=== PATIENT | male | born 1985 | race African-American/Black ===

== ENCOUNTER 2016-10-17 04:02 | Emergency (ER) | payer MEDICAID ==
[~2016-10-17] VITALS: Ht 188 cm; Wt 141.0 kg
[2016-10-17 04:45] VITALS: BP 162/100
[2016-10-17] MEDS ORDERED: LIDOCAINE HCL 1% 20ML VIAL (Pyxis) INJ MC ONE (05:30)
[2016-10-17] MEDS ORDERED: HYDROCODONE/ACETAMINOPHEN 5/325MG TABLET PO ONE (05:30)
[2016-10-17] MEDS ORDERED: BACITRACIN ZINC OINT UDPKT TOP ONE (05:30)
[2016-10-17] MEDS ORDERED: TETANUS, DIPHTHERIA, PERTUSSIS VAC/PF 0.5ML (>7YR OLD) IM ONE (05:30)
== END 2016-10-17 06:05 | disposition home or self-care (01) ==
LOC: ER 04:02
DX: S01.01XA Laceration without foreign body of scalp, initial encounter (principal); F17.200 Nicotine dependence, unspecified, uncomplicated; I10 Essential (primary) hypertension; X58.XXXA Exposure to other specified factors, initial encounter; Y93.89 Activity, other specified; Y92.89 Other specified places as the place of occurrence of the external cause; Y99.8 Other external cause status; Z98.890 Other specified postprocedural states
CPT/HCPCS: 12001; 99283; J3490; X7700; Z7610

== ENCOUNTER 2016-10-24 13:57 | Emergency (ER) | payer MEDICAID ==
[~2016-10-24] VITALS: Ht 185.4 cm; Wt 141.0 kg
[2016-10-24 14:45] VITALS: BP 160/108
== END 2016-10-24 15:45 | disposition home or self-care (01) ==
LOC: ER 14:25
DX: S01.01XD Laceration without foreign body of scalp, subsequent encounter (principal); I10 Essential (primary) hypertension; F31.9 Bipolar disorder, unspecified; F17.210 Nicotine dependence, cigarettes, uncomplicated; W22.8XXD Striking against or struck by other objects, subsequent encounter; Y93.89 Activity, other specified; Y92.9 Unspecified place or not applicable; Y99.8 Other external cause status
CPT/HCPCS: 99281

== ENCOUNTER 2020-08-07 14:44 | Emergency (ER) | payer MEDICAID ==
[~2020-08-07] VITALS: Ht 185.4 cm; Wt 104.0 kg
[2020-08-07 15:49] LABS: CHLORIDE 104 mEq/L (98-107)
[2020-08-07 15:54] LABS: ETHANOL BLOOD 38 mg/dL
[2020-08-07] MEDS ORDERED: LEVETIRACETAM 1000MG PREMIX 100 ML IV ONE (16:00)
[2020-08-07 16:27] LABS: BASOPHILS % 0.9 % (0.0-2.0); EOSINOPHILS % 0.5 % (0.0-5.0); HEMATOCRIT. 46.3 % (42.0-52.0); HEMOGLOBIN. 15.7 g/dL (14.0-18.0); LYMPHOCYTES % 18.8 % (20.0-50.0); MEAN CORPUSCULAR HEMOGLOBIN 32.5 pg (28.0-32.0); MEAN CORPUSCULAR VOLUME 95.8 fL (80.0-94.0); MEAN PLATELET VOLUME 8.2 fl (7.4-10.4); MONOCYTES % 8.4 % (2.0-8.0); NEUTROPHILS % 71.4 % (40.0-76.0); PLATELET 199 x1000/uL (130-400); RED BLOOD CELL COUNT 4.83 mill/uL (4.7-6.1); RED CELL DISTRIBUTION WIDTH 13.7 % (11.6-14.6)
[2020-08-07 16:40] LABS: CLARITY URINE CLEAR (CLEAR); COLOR URINE YELLOW (YELLOW); KETONES URINE TRACE (NEGATIVE); LEUKOCYTE ESTERASE URINE NEGATIVE (NEGATIVE); NITRITE URINE NEGATIVE (NEGATIVE); OCCULT BLOOD URINE TRACE (NEGATIVE); PROTEIN URINE 2+ (NEGATIVE); SPECIFIC GRAVITY URINE 1.019 (1.005-1.030)
[2020-08-07 17:04] LABS: *BARBITURATES SCREEN URINE NEGATIVE (NEGATIVE)
[2020-08-07 17:05] LABS: *AMPHETAMINES SCREEN URINE PRESUMTIVE POSITIVE (NEGATIVE); *BENZODIAZEPINES SCREEN URINE NEGATIVE (NEGATIVE); *COCAINE SCREEN URINE NEGATIVE (NEGATIVE); CANNABINOID URINE SCREEN PRESUMTIVE POSITIVE (NEGATIVE); METHADONE URINE SCREEN NEGATIVE (NEGATIVE); OPIATES URINE SCREEN NEGATIVE (NEGATIVE); PHENCYCLIDINE URINE SCREEN NEGATIVE (NEGATIVE)
[2020-08-07] MEDS ORDERED: LEVE500T19 MT (18:11)
[2020-08-07 23:34] VITALS: BP 177/103
== END 2020-08-08 01:20 | disposition home or self-care (01) ==
LOC: ER 14:44
DX: R56.9 Unspecified convulsions (principal); F31.9 Bipolar disorder, unspecified; I10 Essential (primary) hypertension; F17.290 Nicotine dependence, other tobacco product, uncomplicated; M79.672 Pain in left foot
CPT/HCPCS: 36415; 73630; 80053; 80305; 80320; 81003; 82962; 85025; 93005; 96365; 99285; 99406; J1953; Z7610; G0480

== ENCOUNTER 2023-07-16 01:16 | Emergency (ER) | payer MEDICAID ==
[~2023-07-16] VITALS: Ht 185.4 cm; Wt 140.1 kg
[~2023-07-16 01:16] MED LIST: LEVE500T19 MT
[2023-07-16 01:33] VITALS: TEMP 98.8; O2SAT 94
[2023-07-16 01:53] LABS: EOSINOPHILS % 1.4 % (0.0-5.0); HEMATOCRIT. 46.1 % (42.0-52.0); HEMOGLOBIN. 15.5 g/dL (14.0-18.0); LYMPHOCYTES % 47.2 % (20.0-50.0); MEAN CORPUSCULAR HEMOGLOBIN 32.6 pg (28.0-32.0); MEAN CORPUSCULAR HGB CONC 33.7 g/dL (31.0-37.0); MEAN CORPUSCULAR VOLUME 96.9 fL (80.0-94.0); MEAN PLATELET VOLUME 8.1 fl (7.4-10.4); MONOCYTES % 7.7 % (2.0-8.0); NEUTROPHILS % 42.7 % (40.0-76.0); PLATELET 239 x1000/uL (130-400); RED BLOOD CELL COUNT 4.75 mill/uL (4.7-6.1); RED CELL DISTRIBUTION WIDTH 14.5 % (11.6-14.6); WHITE BLOOD COUNT 4.8 x1000/uL (4.5-11.0)
[2023-07-16 01:53] LABS: CLARITY URINE CLEAR (CLEAR); COLOR URINE DARK YELLOW (YELLOW); GLUCOSE URINE NEGATIVE (NEGATIVE); KETONES URINE NEGATIVE (NEGATIVE); LEUKOCYTE ESTERASE URINE NEGATIVE (NEGATIVE); NITRITE URINE NEGATIVE (NEGATIVE); OCCULT BLOOD URINE NEGATIVE (NEGATIVE); PROTEIN URINE 1+ (NEGATIVE); SPECIFIC GRAVITY URINE 1.022 (1.005-1.030)
[2023-07-16 02:07] LABS: BACTERIA URINE NONE SEEN; RBC URINE NONE SEEN /hpf (0-2); SQUAMOUS EPITHELIAL CELL URINE NONE SEEN /lpf (RARE/1+); WBC URINE NONE SEEN /hpf (0-2)
[2023-07-16 02:09] LABS: ALANINE AMINOTRANSFERASE 55 IU/L (10-49); ALBUMIN 4.5 g/dL (3.2-4.8); ASPARTATE AMINOTRANSFERASE 126 IU/L (<34); BILIRUBIN TOTAL 0.3 mg/dL (0.1-1.0); CALCIUM 9.3 mg/dL (8.7-10.4); CARBON DIOXIDE 25 mEq/L (21-32); CHLORIDE 105 mEq/L (98-107); CREATININE 0.8 mg/dL (0.6-1.3); GLUCOSE 122 mg/dL (70-105); POTASSIUM 3.6 mEq/L (3.5-5.1); PROTEIN TOTAL 8.7 g/dL (6.0-8.3); SODIUM 136 mEq/L (136-145); UREA NITROGEN BLOOD 5 mg/dL (9-23)
[2023-07-16] MEDS ORDERED: DOCU-138 MT (05:30)
[2023-07-16] MEDS ORDERED: IBUP-2029 MT (05:30)
[2023-07-16 07:01] VITALS: BP 183/129; PULSE 103; RESP 20
== END 2023-07-16 07:02 | disposition home or self-care (01) ==
LOC: ER 01:16
DX: R10.32 Left lower quadrant pain (principal); F17.200 Nicotine dependence, unspecified, uncomplicated; E78.00 Pure hypercholesterolemia, unspecified; I10 Essential (primary) hypertension
CPT/HCPCS: 80053; 81003; 83690; 85025; 36415; 74176; 93005; 99285; Z7610 ×2

== ENCOUNTER 2023-09-15 21:07 | Emergency (ER) | payer MEDICAID ==
[~2023-09-15] VITALS: Ht 185.4 cm; Wt 118.0 kg
[~2023-09-15 21:07] MED LIST changes: +DOCU-138 MT; +IBUP-2029 MT
[2023-09-15 21:09] VITALS: TEMP 98.4; O2SAT 100
[2023-09-15] MEDS: LEVETIRACETAM 1000MG PREMIX 100 ML IV ONE (21:42)
[2023-09-15 21:47] LABS: BASOPHILS % 0.5 % (0.0-2.0); EOSINOPHILS % 3.4 % (0.0-5.0); HEMOGLOBIN. 15.4 g/dL (14.0-18.0); LYMPHOCYTES % 28.3 % (20.0-50.0); MEAN CORPUSCULAR HEMOGLOBIN 32.8 pg (28.0-32.0); MEAN CORPUSCULAR HGB CONC 33.5 g/dL (31.0-37.0); MEAN CORPUSCULAR VOLUME 97.9 fL (80.0-94.0); MEAN PLATELET VOLUME 8.8 fl (7.4-10.4); MONOCYTES % 8.2 % (2.0-8.0); NEUTROPHILS % 59.6 % (40.0-76.0); PLATELET 217 x1000/uL (130-400); RED CELL DISTRIBUTION WIDTH 14.3 % (11.6-14.6)
[2023-09-15 22:11] LABS: ALANINE AMINOTRANSFERASE 55 IU/L (10-49); ALBUMIN 4.2 g/dL (3.2-4.8); ASPARTATE AMINOTRANSFERASE 148 IU/L (<34); BILIRUBIN TOTAL 0.8 mg/dL (0.1-1.0); CALCIUM 9.4 mg/dL (8.7-10.4); CARBON DIOXIDE 20 mEq/L (21-32); CHLORIDE 96 mEq/L (98-107); GLUCOSE 134 mg/dL (70-105); POTASSIUM 3.5 mEq/L (3.5-5.1); PROTEIN TOTAL 7.8 g/dL (6.0-8.3); SODIUM 130 mEq/L (136-145)
[2023-09-15] MEDS: MORPHINE SULFATE 4 MG/ML INJ (FOR IV/IM USE) IV ONE (22:11)
[2023-09-15] MEDS: SODIUM CHLORIDE 0.9% 1,000 ML IV ONE (22:12)
[2023-09-15 22:19] LABS: UREA NITROGEN BLOOD < 5 mg/dL (9-23)
[2023-09-16] MEDS ORDERED: ATEN-42 MT (00:16)
[2023-09-16 00:38] VITALS: BP 127/78; PULSE 78; RESP 20
== END 2023-09-16 00:39 | disposition home or self-care (01) ==
LOC: ER 21:07
DX: G40.909 Epilepsy, unspecified, not intractable, without status epilepticus (principal); E78.00 Pure hypercholesterolemia, unspecified; Z98.890 Other specified postprocedural states; Z79.899 Other long term (current) drug therapy
CPT/HCPCS: 99284; 96365; 96361; 96375; 80053; 82962; 85025; 36415; 73030; J1953; J2270; J7030